=== PATIENT | male | born 1980 | race Caucasian/White ===

== ENCOUNTER 2017-11-09 11:44 | Emergency (ER) | payer OTHER ==
[~2017-11-09] VITALS: Ht 182.9 cm; Wt 106.6 kg
[~2017-11-09 11:44] MED LIST: AMOXICILLIN875 M1 PO
--- NOTE | 2017-11-09 15:53 | CT SCAN REPORT ---
EXAMINATION: CT ABDOMEN AND PELVIS WITHOUT CONTRAST CLINICAL INFORMATION: Flank pain. Hematuria. Dysuria. COMPARISON: None TECHNIQUE: Multidetector volumetric imaging was performed from the superior aspect of the liver through the pubic symphysis. Sagittal and coronal reformatted images were obtained on the technologist's workstation. DLP: 612.04 mGy-cm FINDINGS: LUNG BASES: The visualized lung bases are unremarkable. LIVER, GALLBLADDER, AND BILIARY TREE: 1.3 cm hypodensity left lobe of liver likely hepatic cysts, axial image 175 (3). No suspicious liver lesion. No intrahepatic bile duct dilatation. The gallbladder is unremarkable with no evidence of radiopaque gallstones, gallbladder wall thickening, or obvious pericholecystic inflammatory changes. PANCREAS: Unremarkable. SPLEEN: Unremarkable. ADRENAL GLANDS: Unremarkable. BLADDER/KIDNEYS AND URETERS: 8 x 4 mm stone at the left bladder trigone. There is hydronephrosis of left kidney with distention of renal pelvis, calyces and the left ureter to the ureterovesical junction. No additional stone in the left collecting system. The right kidney and ureter are normal. GASTROINTESTINAL TRACT: Mild diverticulosis of left colon sigmoid. No diverticulitis. No acute change of the bowel. No bowel wall thickening or edema. No bowel obstruction. Moderate amount of stool in the colon. The appendix is normal. The small bowel loops are unremarkable. ABDOMINAL WALL: No significant hernia is appreciated. LYMPH NODES: Normal. VASCULAR: Unremarkable. PELVIC VISCERA: Unremarkable. OSSEOUS STRUCTURES: Unremarkable. IMPRESSION: 8 x 4 mm stones the left bladder trigone with hydronephrosis of left kidney.
--- NOTE | 2017-11-09 16:26 | ED GI/GU/ABDOMINAL COMPLAINT ---
History of Present Illness General Chief Complaint: Male Genitourinary Problems Stated Complaint: BACK PAIN, PAINFUL URINATION Source: patient, old records Exam Limitations: no limitations Vital Signs & Intake/Output Vital Signs & Intake/Output Vital Signs Date Time Temp Pulse Resp B/P B/P Pulse O2 O2 Flow FiO2 Mean Ox Delivery Rate 11/09 1632 98.4 76 18 148/100 98 Room Air ED Intake and Output 11/10 0000 11/09 1200 Intake Total Output Total Balance Patient 235 lb Weight Weight Estimated Measurement Method Allergies Uncoded Allergies: MUSHROOMS (Mild, NAUSEA 08/30/17) Reconcile Medications Hydrocodone/Acetaminophen ([place] 5-325 Tablet) 5 MG-325 MG TABLET 1 TAB PO Q4- 6 PRN PRN pain Ondansetron (Zofran Odt) 4 MG TAB.RAPDIS 1 TAB SL TID PRN nausea Tamsulosin HCl (Flomax) 0.4 MG CAP.ER.24H 1 CAP PO DAILY kidney stone Triage Note: PT TO ED C/O LEFT FLANK PAIN X 2 WEEKS. WORSE TODAY. STATES PAINFUL URINATION. H/O KIDNEY STONES, STATES FEELS THE SAME. DENIES BLOOD IN URINE. Triage Nurses Notes Reviewed? yes Onset: Abrupt Duration: week(s): (2), intermittent, waxing and waning Timing: recent history Quality/Severity: aching, moderate, sharpness Severity Numbers: 1 Location: left flank Radiation: LLQ Activities at Onset: none Prior Abdominal Problems: similar symptoms No Modifying Factors: none Associated Symptoms: vomiting x 1 HPI: 37-year-old male with history of past kidney stone several years ago presents complaining of left flank pain rating to left lower quadrant intermittent in nature getting progressively worse over the past 2 weeks. He states that it became more severe at 2:00 this morning and had one episode of vomiting. He s as being here the pain has resolved. He is not had any further vomiting. No fever or chills. He is not taken anything for the pain. No history of abdominal surgeries in the past. He states during his last episode of kidney stones he passed them all his own did not require lithotripsy. No other modifying factors or associated symptoms currently. (Larry ALMEIDA,Diogo) Past History Travel History Traveled to [place] past 21 day No Medical History Any Pertinent Medical History? see below for history Neurological: NONE EENT: NONE Cardiovascular: NONE Respiratory: NONE Gastrointestinal: NONE Hepatic: NONE Renal: nephrolithiasis Musculoskeletal: NONE Psychiatric: NONE Endocrine: NONE Surgical History Surgical History: non-contributory Psychosocial History What is your primary language Mongolian Tobacco Use: Current Daily Use Daily Tobacco Use Amount/Type: => 5 Cigarettes daily ETOH Use: denies use Illicit Drug Use: marijuana Family History Hx Contributory? No (Diogo Bush) Review of Systems Review of Systems Constitutional: Reports: see HPI. Comments Review of systems: See HPI, All other systems negative. Constitutional, no chills no fever, HEENT: no sore throat no congestio Cardiovascular: No chest pain Skin: no rashes, no change in skin Respiratory: No dyspnea no cough no sputum GI: No nausea no vomiting, no diarrhea, no bloating/constipation : No dysuria No hematuria, no frequency Muscle skeletal: No joint pain, no back pain Neurologic: , no headache Heme/endocrine: No bruising (Diogo Bush) Physical Exam Physical Exam General Appearance: well developed/nourished, no apparent distress, alert Gastrointestinal: soft Comments: Well-developed well-nourished person in no acute distress HEENT: Normal EENT exam; PERRL, EOMI,HEAD is atraumatic. moist mucous membranes. Neck: Supple, normal range of motion Back: Nontender, no CVA tenderness. Full range of motion Cardiovascular: Regular rate and rhythm Respiratory: Chest nontender.There were no bony deformities, no asymmetry. No respiratory distress. Patient speaking in full complete sentences. Breath sounds clear to auscultation bilaterally: NO W/R/R Abdomen: Soft, nontender nondistended, no appreciable organomegaly. Normal bowel sounds. No rebound/guarding, Extremity: No edema, full range of motion of extremities Neuro: Alert oriented x3, motor sensory normal, There were no obvious focal neurologic abnormalities. Skin: No appreciable rash on exposed skin, skin is warm and dry. Psych: Mood and affect is normal, memory and judgment is normal. Core Measures ACS in differential dx? No Sepsis Present: No Sepsis Focused Exam Completed? No (Diogo Bush) Progress Differential Diagnosis: appendicitis, bowel obstruction, prostatitis, perforated viscous, pyelonephritis, ureterolithiasis, urinary retention, urethritis, UTI/ pyelo Plan of Care: Orders Procedure Date/time Status URINALYSIS 02/14 1205 Complete Laboratory Tests 11/09/17 1225: Urine Color YEL, Urine Clarity CLEAR, Urine pH 7.0, Ur Specific [place] 1.020, Urine Protein TRACE H, Urine Ketones NEG, Urine Nitrite NEG, Urine Bilirubin NEG, Urine Urobilinogen 0.2, Ur Leukocyte Esterase NEG, Ur Microscopic SEDIMENT EXAMINED, Urine RBC 25-50 H, Urine WBC 3-5 H, Ur Epithelial Cells FEW, Urine Bacteria FEW H, Hyaline Casts RARE H, Urine Mucus FEW, Urine Hemoglobin MOD H , Urine Glucose NEG Urinalysis CAT scan was ordered from triage the patient was seen by myself medially being brought back to a room he denies any symptoms at this time there' s been no fever chills I discussed with him at least his CAT scan results- consistent with passed kidney stone now in bladder. Return precautions were discussed at length he'll follow-up with urologist Dr. Barillas this week they feel comfortable with plan cleared for discharge Diagnostic Imaging: Viewed by Me: CT Scan. Discussed w/RAD: CT Scan. Radiology Impression: PATIENT: PARKER RODAS PRESENT AGE: 37 PATIENT ACCOUNT NO: [id number] : 80 LOCATION: [facility] ORDERING PHYSICIAN: Jed ALMEIDA SERVICE DATE: 11/09/17 EXAM TYPE: CAT - CT ABD & PELVIS W/O IV CONTRAS EXAMINATION: CT ABDOMEN AND PELVIS WITHOUT CONTRAST CLINICAL INFORMATION: Flank pain. Hematuria. Dysuria. COMPARISON: None TECHNIQUE : Multidetector volumetric imaging was performed from the superior aspect of the liver through the pubic symphysis. Sagittal and coronal reformatted images were obtained on the technologist's workstation. DLP: 612.04 mGy-cm FINDINGS: LUNG BASES: The visualized lung bases are unremarkable. LIVER, GALLBLADDER, AND BILIARY TREE: 1.3 cm hypodensity left lobe of liver likely hepatic cysts, axial image 175 (3). No suspicious liver lesion. No intrahepatic bile duct dilatation. The gallbladder is unremarkable with no evidence of radiopaque gallstones, gallbladder wall thickening, or obvious pericholecystic inflammatory changes. PANCREAS: Unremarkable. SPLEEN: Unremarkable. ADRENAL GLANDS: Unremarkable. BLADDER/KIDNEYS AND URETERS: 8 x 4 mm stone at the left bladder trigone. There is hydronephrosis of left kidney with distention of renal pelvis, calyces and the left ureter to the ureterovesical junction. No additional stone in the left collecting system. The right kidney and ureter are normal. GASTROINTESTINAL TRACT: Mild diverticulosis of left colon sigmoid. No diverticulitis. No acute change of the bowel. No bowel wall thickening or edema. No bowel obstruction. Moderate amount of stool in the colon. The appendix is normal. The small bowel loops are unremarkable. ABDOMINAL WALL: No significant hernia is appreciated. LYMPH NODES: Normal. VASCULAR: Unremarkable. PELVIC VISCERA: Unremarkable. OSSEOUS STRUCTURES: Unremarkable. IMPRESSION: 8 x 4 mm stones the left bladder trigone with hydronephrosis of left kidney. DICTATED BY: London Gee MD DATE/ TIME DICTATED:11/09/171544 JINGLE WRITER:SUSAN DATE/TIME TRANSCRIBED: 11/09/171544 CONFIDENTIAL, DO NOT COPY WITHOUT APPROPRIATE AUTHORIZATION. < Electronically signed in Other Vendor System> SIGNED BY: London Gee MD 1553 Initial ED EKG: none (Diogo Bush) Departure Departure Time of Disposition: 172 Disposition: HOME OR SELF CARE Condition: Stable Clinical Impression Primary Impression: Kidney stone Referrals: Patient Has No Primary Care Dr (PCP/Family) Anthony Barillas MD Additional Instructions: Follow-up with urologist Dr. Barillas as discussed tomorrow. Vicodin for breakthrough pain if it returns use caution as this is a narcotic and may make you drowsy. No driving or drinking alcohol while taking. Flomax as directed. Zofran if needed for nausea. Return anytime sooner if you develop worsening pain despite medication or any other concerns-fever, chills, vomiting, worsening pain, difficulty urinating. Departure Forms: Customer Survey General Discharge Information Prescriptions: Current Visit Scripts Hydrocodone/Acetaminophen ([place] 5-325 Tablet) 1 TAB PO Q4-6 PRN PRN pain #10 TAB Ondansetron (Zofran Odt) 1 TAB SL TID PRN nausea #10 TAB Tamsulosin HCl (Flomax) 1 CAP PO DAILY #7 CAP (Diogo Bush) PA/OPERATIONS INSPECTOR Co-Sign Statement Statement: ED Attending supervision documentation- [] I saw and evaluated the patient. I have also reviewed all the pertinent lab results and diagnostic results. I agree with the findings and the plan of care as documented in the PA's/OPERATIONS INSPECTOR's documentation. [X] I have reviewed the ED Record and agree with the PA's/OPERATIONS INSPECTOR's documentation. [] Additions or exceptions (if any) to the PAs/OPERATIONS INSPECTOR's note and plan are summarized below: [] (Alek GRANT,Gracie)
[2017-11-09 16:32] VITALS: BP 148/100
[2017-11-09] MEDS ORDERED: FLOMAX0.4 M1 PO (17:23)
[2017-11-09] MEDS ORDERED: ZOFRAN ODT4 M1 SL (17:23)
[2017-11-09] MEDS ORDERED: NORCO 5-325 TA1 EACH PO (17:23)
== END 2017-11-09 17:55 ==
LOC: ERH 11:44
DX: N20.0 Calculus of kidney (principal)
CPT/HCPCS: 74176; 81001; 96374; J1885